=== PATIENT | male | born 1970 | race Caucasian/White ===

== ENCOUNTER → 2019-05-26 | Outpatient (CLI) | payer BC ==
--- NOTE | 2019-05-26 09:51 | US ---
EXAMINATION TYPE: US groin LT DATE OF EXAM: 05/26/2019 COMPARISON: NONE CLINICAL HISTORY: K40.90 UNILATERAL INGUINAL HERNIA. Patient states having left groin pain. Patient states having hx of hernia with repair x 3-4 years ago. Area of pain scanned at left groin/inguinal canal. Possible bowel seen with movement visualized with general respiration. Valsalva performed. Contralateral images taken. IMPRESSION: Left inguinal hernia
--- NOTE | 2019-05-26 12:03 | CT ---
EXAMINATION TYPE: CT abdomen pelvis w con DATE OF EXAM: 05/26/2019 COMPARISON: Correlation ultrasound same day HISTORY: 49-year-old male left inguinal hernia, history of prior repair TECHNIQUE: Contiguous axial scanning of the abdomen and pelvis following administration of 100 ml Iso julia 300 IV contrast. Delayed images through the kidneys and coronal/sagittal reconstructions perform ed. CT DLP: 1235.5 mGycm Automated exposure control for dose reduction was used. FINDINGS: Heart normal size without pericardial effusion. Lung bases clear without pleural effusion. No focal liver lesion or biliary ductal dilatation. Portal venous system is patent. Gallbladder, right adrenal gland, kidneys, spleen, and pancreas appear within normal limits. Several 1.4 cm low density nodularity left adrenal gland indeterminate but statistically represents a benign adrenal adenoma. No dilated small bowel, free fluid, or free air. No mesenteric or retroperitoneal lymphadenopathy. Tiny fatty umbilical hernia. Normal appendix. No significant stool burden. Oral contrast progressed to the distal rectum. Bladder urine distended. No abnormal fluid collection the pelvis or pelvic lymphadenopathy. No discrete inguinal hernia is identified on either side. No femoral canal hernia seen. Bones: A few bone islands within the right femoral head. Mild degenerative spurring at the hips. Dege nerative disc disease lower thoracic spine and also at L5-S1. IMPRESSION: 1. NO DISCRETE INGUINAL HERNIA BY CT. GIVEN THE DISCREPANCY BETWEEN THE CT AND ULTRASOUND FINDINGS, A FOLLOW-UP ULTRASOUND AT A LARGER, TERTIARY CARE CENTER WITH MORE SPECIALIZED TRAINING IN HERNIA ULTR ASOUND SHOULD BE CONSIDERED. 2. A 1.4 CM LOW-DENSITY NODULE LEFT ADRENAL GLAND IS INDETERMINATE BUT STATISTICALLY REPRESENTS A NOE IGN ADRENAL ADENOMA. A ONE-YEAR FOLLOW-UP CT CAN ENSURE STABILITY.
== END | disposition home or self-care (01) ==
LOC: RADUSWWP 08:21
PROVIDERS: ATTEND Family Medicine
DX: K40.90 Unilateral inguinal hernia, without obstruction or gangrene, not specified as recurrent (principal); E27.8 Other specified disorders of adrenal gland; D35.00 Benign neoplasm of unspecified adrenal gland
CPT/HCPCS: 74177